=== PATIENT | female | born 1985 | race Two or more races ===

== ENCOUNTER → 2021-01-06 | Emergency (ER) | payer OTHER ==
[~2021-01-06] VITALS: Ht 165.1 cm; Wt 63.5 kg
[~2021-01-06] MED LIST: BENADRYL50 MG PO; MEDROLPACK PO
== END | disposition home or self-care (01) ==
LOC: ER 18:43
DX: L53.8 Other specified erythematous conditions (principal); T78.02XA Anaphylactic reaction due to shellfish (crustaceans), initial encounter; T78.49XA Other allergy, initial encounter; X58.XXXA Exposure to other specified factors, initial encounter